=== PATIENT | female | born 1975 | race American Indian/Alaskan Native ===

== ENCOUNTER 2018-06-10 11:26 | Outpatient (CLI) | payer MEDICAID | END 2018-06-10 11:27 | disposition home or self-care (01) | LOC: C.USH 11:26 | DX: N63.10 Unspecified lump in the right breast, unspecified quadrant (principal) ==

== ENCOUNTER 2018-08-08 12:14 | Outpatient (CLI) | payer MEDICAID | END 2018-08-08 12:15 | disposition home or self-care (01) | LOC: C.PAT 12:14 | DX: N64.9 Disorder of breast, unspecified (principal); D24.9 Benign neoplasm of unspecified breast ==

== ENCOUNTER 2018-08-13 09:48 | Day surgery (SDC) | payer MEDICAID ==
[2018-08-08 12:45] VITALS: BMI 34.0
[2018-08-13] MEDS ORDERED: Midazolam 2 MG/2 ML VIAL ONE (13:56)
[2018-08-13] MEDS ORDERED: Propofol 10 mg/ml Inj (20 ML) ONE (13:56)
[2018-08-13] MEDS ORDERED: ceFAZolin 1 gm in NS 1 GM/100 ML BAG IVPB ONE (13:58)
[2018-08-13] MEDS ORDERED: Bupivacaine 0.25% 20 ML INJ IJ ONE (13:58)
[2018-08-13] MEDS ORDERED: Lidocaine/Epinephrine 1% 1:100000 10 ML IJ ONE (13:58)
[2018-08-13] MEDS ORDERED: HYDROmorphone 0.5 mg/0.5 ml ISec IVP PRN (15:31)
--- NOTE | 2018-08-13 15:31 | PCM.SURG1 ---
Surgeon's Initial Post Op Note - Surgeon's Notes Surgeon: MD Sagar Ingot Supervisor: Marcell, PGY3. Jesica Paz, MS3 Pre-Operative Diagnosis: Right breast mass Operative Findings: Right breast mass with needle loc wire Post-Operative Diagnosis: Right breast mass Operation Performed: Excision of right breast mass Specimen/Specimens Removed: Right breast mass Estimated Blood Loss: EBL {In ML}: 10 Date of Surgery/Procedure: 08/13/18 Time of Surgery/Procedure: 14:30
[2018-08-13 15:52] VITALS: O2SAT 100
[2018-08-13 17:11] VITALS: BP 120/80; PULSE 81; RESP 18; TEMP 97
--- NOTE | 2018-08-14 17:37 | US ---
Date of service: 08/13/2018 HISTORY: Follow-up ultrasound-directed core needle biopsy right breast mass performed 06/10/2018. TECHNIQUE/FINDINGS: Informed consent obtained Time-out procedure performed. Sterile technique utilized. Ultrasound-directed needle localization performed well-circumscribed mass 08:[address] 3 cm from the nipple. OTHER FINDINGS: Documentation of placement of the needle both ultrasound graphically and mammographically. IMPRESSION: Postprocedure mammogram stent firms the specimen contains the mass, micro clip and the adjacent hook wire. Final pathology results are pending
--- NOTE | 2018-08-14 23:42 | OP ---
PROCEDURE DATE: 08/13/2018 PREOPERATIVE DIAGNOSIS: Right breast lesion. POSTOPERATIVE DIAGNOSIS: Right breast lesion. PROCEDURE DONE: Preoperative needle localization and right breast lumpectomy. SURGEON: Tod Keith MD. SHEET TESTER: Robin Faith DO, PGY-3 resident. ANESTHESIA: General endotracheal tube anesthesia. ESTIMATED BLOOD LOSS: Around 10 mL. DRAINS: None. PATHOLOGY: Right breast lumpectomy specimen was sent for radiological confirmation as well as permanent pathology and radiological confirmation of complete removal of the wire as well as biopsy clip was received. OPERATIVE FINDINGS: The patient had right outer mid quadrant of the breast with a palpable mass at the site of the lesion. 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 Brought to the OR, placed supine on the operating table. After induction of anesthesia, the patient had a preop needle localization before coming to the OR and the right breast was prepped and draped in usual sterile fashion. Local anesthesia was injected. A curvilinear incision was made on the right of the breast. An upper and lower flap was created. The breast lesion appeared to be more superficial and the dissection was carried down medially, laterally, inferiorly, and superiorly and the dissection was carried down deep up to the underlying muscles and the fascia and the whole right breast lumpectomy specimen was excised. It was sent off the table for the pathology. Proper hemostasis was achieved. Wound was irrigated and the deeper breast layer was sutured with 2-0 Vicryl and the subcutaneous with 3-0 Vicryl, skin with 4-0 Monocryl, and dry sterile dressing was applied. The patient tolerated procedure well. Count of instrument and gauze was correct. There was no apparent complication. The patient was reversed from anesthesia in the OR, sent to the postanesthesia care unit in stable condition. Tod Keith MD
== END 2018-08-13 18:01 | disposition home or self-care (01) ==
LOC: C.SDS 09:48
PROVIDERS: ATTEND Surgery Surgical Critical Care
DX: D48.61 Neoplasm of uncertain behavior of right breast (principal)
CPT/HCPCS: 19285; 19301; 88307; J0690; J2250; J2704; J3010